=== PATIENT | female | born 1960 | race Caucasian/White ===

== ENCOUNTER → 2016-08-22 | Outpatient (CLI) | payer BC | LOC: BMCIMAGING 17:54 | PROVIDERS: ATTEND Podiatrist Foot & Ankle Surgery | DX: M19.171 Post-traumatic osteoarthritis, right ankle and foot (principal); M19.172 Post-traumatic osteoarthritis, left ankle and foot ==

== ENCOUNTER → 2017-03-12 | Outpatient (CLI) | payer BC | LOC: FIMAGING 08:39 | PROVIDERS: ATTEND Physician Assistant Medical | DX: Z12.31 Encounter for screening mammogram for malignant neoplasm of breast (principal) | CPT/HCPCS: G0202 ==

== ENCOUNTER → 2017-03-12 | Outpatient (CLI) | payer BC | LOC: BMCIMAGING 16:24 | PROVIDERS: ATTEND Podiatrist Foot & Ankle Surgery | DX: S92.532A Displaced fracture of distal phalanx of left lesser toe(s), initial encounter for closed fracture (principal) ==

== ENCOUNTER → 2017-09-12 | Outpatient (CLI) | payer BC | LOC: FIMAGING 15:06 | PROVIDERS: ATTEND Family Medicine Sports Medicine | DX: M25.532 Pain in left wrist (principal); M25.542 Pain in joints of left hand ==

== ENCOUNTER → 2018-04-23 | Outpatient (CLI) | payer BC | LOC: FIMAGING 14:32 | PROVIDERS: ATTEND Physician Assistant Medical | DX: Z12.31 Encounter for screening mammogram for malignant neoplasm of breast (principal); M17.11 Unilateral primary osteoarthritis, right knee ==

== ENCOUNTER → 2018-05-22 | Outpatient (CLI) | payer BC | LOC: FIMAGING 08:25 | PROVIDERS: ATTEND Family Medicine | DX: M25.561 Pain in right knee (principal); M25.361 Other instability, right knee; G89.29 Other chronic pain; R93.89 Abnormal findings on diagnostic imaging of other specified body structures ==

== ENCOUNTER → 2018-09-08 | Outpatient (CLI) | payer BC | LOC: FIMAGING 07:04 ==